=== PATIENT | female | born 1985 | race Caucasian/White ===

== ENCOUNTER 2018-02-26 17:08 | Emergency (ER) | payer OTHER ==
[2018-02-26] MEDS ORDERED: CEPHALEXIN 500 MG CAP PO (17:30)
[2018-02-26] MEDS ORDERED: TRIMETHOPRIM/SULFAMETHOX (DS) TAB PO (17:30)
== END 2018-02-26 17:43 | disposition home or self-care (01) ==
LOC: FTE 17:08
DX: L02.31 Cutaneous abscess of buttock (principal); E11.9 Type 2 diabetes mellitus without complications
CPT/HCPCS: 99283; Z7502

== ENCOUNTER 2018-02-28 16:24 | Emergency (ER) | payer OTHER | END 2018-02-28 19:21 | disposition home or self-care (01) | LOC: FTE 16:24 | DX: L02.31 Cutaneous abscess of buttock (principal); E11.9 Type 2 diabetes mellitus without complications; Z79.84 Long term (current) use of oral hypoglycemic drugs | CPT/HCPCS: 87070; 99283 ==

== ENCOUNTER 2018-03-04 17:14 | Emergency (ER) | payer OTHER | END 2018-03-04 19:27 | disposition home or self-care (01) | LOC: FTE 17:14 | DX: Z48.01 Encounter for change or removal of surgical wound dressing (principal); E11.9 Type 2 diabetes mellitus without complications; Z79.84 Long term (current) use of oral hypoglycemic drugs | CPT/HCPCS: 99283; Z7502 ==